=== PATIENT | male | born 1990 | race African-American/Black ===

== ENCOUNTER 2020-07-12 14:16 | Emergency (ER) | payer SELFPAY ==
[~2020-07-12] VITALS: Wt 68.0 kg
== END 2020-07-12 17:27 | disposition home or self-care (01) ==
LOC: ED 14:16
DX: R05 Cough (principal); R09.81 Nasal congestion; Z20.828 Contact with and (suspected) exposure to other viral communicable diseases

== ENCOUNTER 2020-10-06 21:12 | Emergency (ER) | payer OTHER ==
[~2020-10-06] VITALS: Ht 175.2 cm; Wt 70.3 kg
[2020-10-06 21:36] LABS: BASO % 0.3 % (0.0-1.0); EOS # 0.2 10*3/uL (0.0-0.4); EOS % 2.4 % (1.0-4.0); HEMATOCRIT 43.1 % (42.0-52.0); LYMPH % 31.6 % (27.0-41.0); MEAN CORPUSCULAR HGB 32.5 pg (27.0-31.0); MEAN CORPUSCULAR HGB CONC 33.9 g/dl (33.0-37.0); MEAN PLATELET VOLUME 8.8 fl (9.6-12.3); MONO # 0.7 10*3/uL (0.1-1.0); MONO % 7.4 % (3.0-9.0); NEUT # 5.5 10*3/uL (2.3-7.9); NEUT % 58.1 % (47.0-73.0); PLATELET COUNT AUTOMATED 374 10*3/uL (130-400); RED BLOOD COUNT 4.49 10*6/uL (4.50-5.90); RED CELL DISTRI WIDTH 13.6 % (0-14.5); WHITE BLOOD COUNT 9.5 10*3/uL (4.8-10.8)
[2020-10-06 21:52] LABS: ALBUMIN 4.1 gm/dl (3.1-4.5); ALKALINE PHOSPHATASE 78 U/L (45-117); BUN 19 mg/dl (7-24); CHLORIDE 111 mmol/L (98-107); CREATININE 1.23 mg/dL (0.70-1.30); LIPASE 519 U/L (73-393); POTASSIUM 3.9 mmol/L (3.5-5.1); SGOT/AST 16 IU/L (3-35); SGPT/ALT 26 U/L (12-78); SODIUM 143 mmol/L (136-145); TOTAL PROTEIN 7.1 gm/dL (6.4-8.2)
[2020-10-06 23:25] LABS: BILIRUBIN Negative (Negative); BLOOD Negative (Negative); CLARITY Clear (Clear); COLOR Yellow (Yellow); GLUCOSE Negative (Negative); KETONE 1+ (Negative); LEUKO ESTERASE Negative (Negative); NITRITE Negative (Negative); SPECIFIC GRAVITY >= 1.030 (1.001-1.030)
[2020-10-07 00:11] LABS: RBC 0-2 rbc/hpf (0-2)
== END 2020-10-07 00:46 | disposition home or self-care (01) ==
LOC: ED 21:12
PROVIDERS: Emergency Medicine
DX: R10.12 Left upper quadrant pain (principal); F17.200 Nicotine dependence, unspecified, uncomplicated

== ENCOUNTER 2020-12-02 05:26 | Emergency (ER) | payer OTHER ==
[~2020-12-02] VITALS: Ht 175.2 cm; Wt 74.8 kg
== END 2020-12-02 05:52 | disposition left against medical advice (07) ==
LOC: ED 05:26
DX: T40.601A Poisoning by unspecified narcotics, accidental (unintentional), initial encounter (principal); Y92.89 Other specified places as the place of occurrence of the external cause

== ENCOUNTER → 2025-05-28 | Outpatient (CLI) | payer OTHER ==
[~2025-05-28] MED LIST: CLEOCIN HCL300 MG PO
== END | disposition home or self-care (01) ==
LOC: LAB 09:14
PROVIDERS: ATTEND Family Medicine
DX: R79.89 Other specified abnormal findings of blood chemistry (principal); R53.83 Other fatigue

== ENCOUNTER 2025-07-25 22:49 | Emergency (ER) | payer OTHER ==
[~2025-07-25] VITALS: Ht 175.2 cm; Wt 77.1 kg
[2025-07-25] MEDS ORDERED: CLINDAMYCIN HC300 MG PO (23:34)
== END 2025-07-25 23:30 | disposition home or self-care (01) ==
LOC: ED 22:49
DX: S80.262A Insect bite (nonvenomous), left knee, initial encounter (principal); Z88.0 Allergy status to penicillin; W57.XXXA Bitten or stung by nonvenomous insect and other nonvenomous arthropods, initial encounter; Y93.89 Activity, other specified; Y92.89 Other specified places as the place of occurrence of the external cause; Y99.8 Other external cause status